=== PATIENT | female | born 1990 | race Caucasian/White ===

== ENCOUNTER 2018-09-25 14:22 | Emergency (ER) | payer OTHER, MEDICAID ==
[~2018-09-25] VITALS: Ht 170.2 cm; Wt 98.9 kg
[2018-09-25 14:32] VITALS: Ht 170.2 cm; Wt 98.9 kg
[2018-09-25 17:55] VITALS: BP 121/66
== END 2018-09-25 17:55 | disposition home or self-care (01) ==
LOC: ED 14:22
DX: S16.1XXA Strain of muscle, fascia and tendon at neck level, initial encounter (principal); S29.9XXA Unspecified injury of thorax, initial encounter; S39.91XA Unspecified injury of abdomen, initial encounter; Z88.0 Allergy status to penicillin; Z98.890 Other specified postprocedural states; Y93.89 Activity, other specified; V49.9XXA Car occupant (driver) (passenger) injured in unspecified traffic accident, initial encounter; Y92.89 Other specified places as the place of occurrence of the external cause; Y99.8 Other external cause status
CPT/HCPCS: Q0092